=== PATIENT | male | born 1980 | race Caucasian/White ===

== ENCOUNTER 2019-05-17 04:03 | Emergency (ER) | payer OTHER, SELFPAY ==
[2019-05-17 04:04] VITALS: BP 130/85; PULSE 87; RESP 16; TEMP 36.4; O2SAT 96; BMI 35.6
--- NOTE | 2019-05-17 04:05 | CT_ITS ---
STUDY: CT CERVICAL SPINE WITHOUT CONTRAST REASON FOR EXAM: Male, 39 years old. Fall down stairs. RADIATION DOSAGE (If Supplied By Facility): CTDIvol = ( 32.58 ) mGy, DLP = ( 645.87 ) mGycm TECHNIQUE: High resolution transaxial imaging was performed without contrast material. Sagittal and coronal images were reconstructed. Individualized dose optimization techniques were used for this CT. COMPARISON: None FINDINGS: Normal craniovertebral junction. Normal anterior atlantoaxial articulation. Normal odontoid process. There is straightening of the normal cervical lordosis compatible with muscle spasm or patient positioning. Normal vertebral bodies and posterior osseous elements. C2-3: Normal endplates. Normal disc height and morphology. Normal central canal and intervertebral neuroforamina. C3-4: Normal endplates. Normal disc height and morphology. Normal central canal and intervertebral neuroforamina. C4-5: Normal endplates. Normal disc height and morphology. Normal central canal and intervertebral neuroforamina. C5-6: Normal endplates. Normal disc height and morphology. Normal central canal and intervertebral neuroforamina. C6-7: Normal endplates. Normal disc height and morphology. Normal central canal and intervertebral neuroforamina. C7-T1: Normal endplates. Normal disc height and morphology. Normal central canal and intervertebral neuroforamina. Normal visualized soft tissue structures. CT/Spine Cervical without Contras IMPRESSION: Straightening of the normal cervical lordosis otherwise negative exam. No fracture identified. Electronically Signed: Jeff Alarcon MD at 5:10 EDT , Service support ,
--- NOTE | 2019-05-17 04:05 | CT_ITS ---
STUDY: CT BRAIN WITHOUT CONTRAST REASON FOR EXAM: Male, 39 years old. Left-sided hematoma. Fall down stairs. RADIATION DOSAGE (If Supplied By Facility): CTDIvol = ( 44.99 ) mGy, DLP = ( 829.85 ) mGycm TECHNIQUE: Transaxial CT imaging of the brain was performed without administration of intravenous contrast material. Individualized dose optimization techniques were used for this CT. COMPARISON: No relevant priors. FINDINGS: Large left frontal parietal scalp hematoma. Normal calvarium. Normal size ventricles and extra-axial spaces for the patient's age. Normal white matter tracts of the cerebral hemispheres. Normal basal ganglia and thalami. Normal brainstem. Normal cerebellum. There is no intracranial hemorrhage. There are no findings of an acute ischemic infarction. Normal visualized paranasal sinuses. CT/Brain/Head without Contrast IMPRESSION: Normal unenhanced CT scan of the brain. Left frontal parietal scalp hematoma. Electronically Signed: Jeff Alarcon MD at 5:06 EDT , Service support ,
--- NOTE | 2019-05-17 04:06 | ED.DCSUM_ITS ---
History of Present Illness Chief Complaint: Head Injury Informant: Patient, Significant Other Onset: Today Narrative: Here with significant other for a fall with head injury. Occurred at 2:30 AM, 90 minutes ago. Visiting from [place], was drinking alcohol, walking up steps when he fell down. No loss of conscious. No neck pain. No extremity pain. Able to ambulate. Abrasion to left flank. Abrasion to left upper face with contusion. Tetanus a year ago. History of paroxysmal atrial fibrillation on flecainide. Does not take aspirin or any other anticoagulants. Denies any nausea or vomiting. No shortness of breath. Pain is around contusion area. Prior similar symptoms: No Past Medical History - Allergies and Home Meds Allergies/Adverse Reactions: Allergies Penicillins [PCN] Adverse Reaction (Verified 05/17/19 04:04) Other SKIN BLISTERS Sulfa (Sulfonamide Antibiotics) Adverse Reaction (Verified 05/17/19 04:04) Other SKIN BLISTERS Primary Care Physician: [facility] Doctor,Out of [NON-STAFF] - Past Medical History: - - Atrial fibrillation Review of Systems General: Denies: Chills, Fever, Sweats Eyes: Denies: Visual changes - bilaterally, Diplopia ENT: Denies: Rhinorrhea, Sore throat Cardiovascular: Denies: Chest pain, Palpitations Respiratory: Denies: Dyspnea, Cough, Dyspnea on exertion Gastrointestinal: Denies: Abdominal pain, Nausea, Vomiting, Diarrhea, Melena, Hematochezia Genitourinary: Denies: Dysuria, Hematuria, Frequency Musculoskeletal: Denies: Back pain, Extremity Pain Skin: Reports: Abrasions. Denies: Rash, Wounds Neurological: Reports: Headache. Denies: Weakness, Numbness Physical Exam Inital Vital Signs reviewed: Yes General: Well nourished, Well developed, No Acute Distress Head: Normocephalic, - - Left frontal scalp hematoma with abrasion frontal with no active bleeding. No hemotympanum. Eyes: Perrl, EOMI ENT: Moist mucous membranes, No rhinorrhea Neck: Supple, Nontender, - - No midline neck pain Cardiovascular: Regular rate, Regular rhythm, No murmurs Respiratory: No distress, CTA bilaterally, Chest nontender Abdomen: Soft, Nontender, Nondistended, Normal bowel sounds Back: - - Abrasion along left lower flank, no active bleeding.. Negative for: Spinal tenderness Extremities: Nontender, No edema, - - Active full range of motion x4 extremities. Negative logroll bilaterally. Skin: Normal color, No rash, - - Abrasion along the dorsal PIP joints of right second and third digits with no active bleeding. No deformities. Active full range of motion. Neurological: Alert, Oriented x3, Cranial nerves II-XII grossly intact, Normal Strength, Normal Sensation Psychological: Normal affect, Normal Mood Diagnostic/Tx/Re-eval Clinical Impression(s) from Imaging Studies Brain CT 05/17/19 04:05 IMPRESSION: Normal unenhanced CT scan of the brain. Left frontal parietal scalp hematoma. Electronically Signed: Jeff Alarcon MD at 5:06 EDT , Service support , Cervical Spine CT 05/17/19 04:05 IMPRESSION: Straightening of the normal cervical lordosis otherwise negative exam. No fracture identified. Electronically Signed: Jeff Alarcon MD at 5:10 EDT , Service support , - Medical Decision Making Patient vital signs stable, no focal neurological deficit. Clinically has scalp hematoma with multiple areas of abrasion. Also has contusion and abrasion to his left paralumbar region. CT head and neck with no intracranial process or spinal process. Scalp hematoma was noted. Ice on his hematoma, is treated with Tylenol. Tetanus is up-to-date. He will continue Tylenol as needed. There is no bony tenderness of the back. Patient spouse updated on findings, abrasion care with discussed. Follow-up as an outpatient. All questions were answered. ED Disposition - Plan for ED Patient: Disposition: Home or Assisted Living Diagnosis: Closed head injury, Scalp hematoma, Back contusion, Abrasion, multiple sites Instructions: HEAD INJURY, No Wake-Up (Adult), SCALP CONTUSION, No Wake Up, CONTUSION, Back, Abrasion Referrals: [facility] Doctor,Out of [NON-STAFF] - 5-7 Days
[2019-05-17] MEDS: Acetaminophen 500 MG Tablet 1000 MG PO (05:12)
[2019-05-17 05:19] VITALS: BP 128/75; PULSE 85; RESP 18; O2SAT 97
== END 2019-05-17 05:20 | disposition home or self-care (01) ==
PROVIDERS: Emergency Provider Emergency Medicine
DX: S00.03XA Contusion of scalp, initial encounter (principal); S30.0XXA Contusion of lower back and pelvis, initial encounter; S30.811A Abrasion of abdominal wall, initial encounter; S60.410A Abrasion of right index finger, initial encounter; S60.412A Abrasion of right middle finger, initial encounter; W10.9XXA Fall (on) (from) unspecified stairs and steps, initial encounter; Y93.9 Activity, unspecified; Y92.9 Unspecified place or not applicable; Y99.9 Unspecified external cause status; I48.0 Paroxysmal atrial fibrillation; Z79.899 Other long term (current) drug therapy; Z88.0 Allergy status to penicillin; Z88.2 Allergy status to sulfonamides
CPT/HCPCS: 70450; 72125; 99283